=== PATIENT | male | born 1935 | race Caucasian/White ===

== ENCOUNTER 2018-08-21 07:06 | Emergency (ER) | payer OTHER ==
[~2018-08-21] VITALS: Ht 177.8 cm; Wt 81.7 kg
[2018-08-21 07:09] VITALS: BP 134/70
[2018-08-21] MEDS ORDERED: CELEBREX 200 M200 M1 PO (07:28)
[2018-08-21] MEDS ORDERED: COLACE100 MG PO (07:29)
[2018-08-21] MEDS ORDERED: LISINOPRIL-HCT1 EACH PO (07:29)
[2018-08-21] MEDS ORDERED: CLARITIN10 MG PO (07:29)
[2018-08-21] MEDS ORDERED: FLONASE 0.05%50 MCG NASAL (07:29)
[2018-08-21] MEDS ORDERED: SIMVASTATIN40 MG PO (07:29)
[2018-08-21] MEDS ORDERED: ASPIR 8181 MG PO (07:29)
[2018-08-21] MEDS ORDERED: KEFLEX500 M1 PO (07:47)
== END 2018-08-21 08:06 | disposition home or self-care (01) ==
LOC: ER 07:06
DX: Z48.01 Encounter for change or removal of surgical wound dressing (principal); Z96.641 Presence of right artificial hip joint; Z85.51 Personal history of malignant neoplasm of bladder; Z90.49 Acquired absence of other specified parts of digestive tract